=== PATIENT | male | born 1985 | race Caucasian/White ===

== ENCOUNTER 2020-11-04 14:12 | Emergency (ER) | payer OTHER ==
[2020-11-04 16:36] LABS: BASOPHIL 0.3 % (0-2); EOSINOPHIL 0.1 % (0-5); HCT 45.2 % (42.0-52.0); HGB 15.4 g/dl (13.2-18.0); LYMPHOCYTE 8.9 % (15-48); MCH 33.6 pg (25.0-31.0); MCHC 34.1 g/dL (32.0-36.0); MCV 98.5 fL (78.0-100.0); MONOCYTE 6.7 % (0-12); MPV 9.4 fL (6.0-9.5); NEUTROPHIL 83.7 % (41-80); NRBC 0; PLT 419 K/uL (150-400); RBC 4.59 M/uL (4.70-6.00); RDW 12.3 % (11.5-14.0); WBC 15.2 K/uL (4.0-10.5)
[2020-11-04 16:37] LABS: BILIRUBIN 1+ mg/dL (NEGATIVE); BLOOD 3+ Ery/uL (NEGATIVE); CLARITY CLEAR (CLEAR); COLOR YELLOW (YELLOW); GLUCOSE (U) NORMAL (NORMAL); LEUKOCYTES NEGATIVE Leu/uL (NEGATIVE); NITRITE NEGATIVE (NEGATIVE); PROTEIN TRACE (LOW) mg/dL (NEGATIVE); SPECIFIC GRAVITY >=1.030 (1.001-1.030); UROBILINOGEN 0.2 mg/dL (0.2-1.0); pH 5.5 (5.0-9.0)
[2020-11-04 16:46] LABS: SQUAMOUS EPITHELIAL CELLS RARE; URINARY RBC 20-50; URINARY WBC RARE
[2020-11-04 16:47] LABS: ALBUMIN 4.7 g/dL (3.4-5.0); BILIRUBIN - TOTAL 0.7 mg/dL (0.2-1.0); GLOBULIN (CALCULATION) 3.5 g/dL; POTASSIUM 4.3 mmol/L (3.5-5.1); TOTAL PROTEIN 8.2 g/dL (6.4-8.2)
[2020-11-04] MEDS ORDERED: FLOMAX0.4 MG PO (17:53)
[2020-11-04] MEDS ORDERED: PERCOCET 5-3251 EACH PO (17:53)
[2020-11-04] MEDS ORDERED: NAPROXEN500 MG PO (17:53)
== END 2020-11-04 18:14 | disposition home or self-care (01) ==
LOC: FER 14:12
PROVIDERS: Emergency Medicine
DX: N13.2 Hydronephrosis with renal and ureteral calculous obstruction (principal); Z87.442 Personal history of urinary calculi
CPT/HCPCS: 36415; 80053; 81001; 85025; J1170; J1885; J2405